=== PATIENT | male | born 1970 | race Caucasian/White ===

== ENCOUNTER 2017-04-24 15:59 | Emergency (ER) | payer BC ==
[2017-04-24 16:57] VITALS: BP 158/80
--- NOTE | 2017-04-24 17:25 | EDM.PDOC ---
ED HPI GENERAL MEDICAL PROBLEM - General Stated Complaint: LACERATION ABOUT R EYE Time Seen by Provider: 04/24/17 16:32 Source of Information: Reports: Patient History Limitations: Reports: No Limitations - History of Present Illness INITIAL COMMENTS - FREE TEXT/NARRATIVE: History of present illness: [46-year-old male presents with laceration just to involving the top portion of his right eyebrow it's curvilinear laceration following the eyebrow. He sustained it while moving a bookshelf he hit it on the top edge of the bookshelf. There was no loss of consciousness no other injuries. It is 4 cm long.] Review of systems: As per history of present illness and below otherwise all systems reviewed and negative. Past medical history: As per history of present illness and as reviewed below otherwise noncontributory. Surgical history: As per history of present illness and as reviewed below otherwise noncontributory. Social history: No reported history of drug or alcohol abuse. Family history: As per history of present illness and as reviewed below otherwise noncontributory. Physical exam: HEENT: He has a curvilinear for similar laceration following the top edge of the right eyebrow that appears to be a clean cut. Lungs: Clear to auscultation, Heart: S1S2, regular, negative for clicks, rubs, or JVD. Extremities: Atraumatic, negative for cords or calf pain. Neurovascular unremarkable. Neuro: Awake, alert, oriented. Exam nonfocal. Diagnostics: [] Therapeutics: [There was prepped and draped the usual fashion 1% lidocaine without epinephrine was used for local infiltration The wound was closed with 5-0 Ethilon in a simple running fashion Dressing applied by the nurse. Patient tolerated the procedure well tetanus is up-to-date ] Impression: [4 cm laceration involving the right eyebrow] Plan: [Sutures out in 5-7 days. Follow-up sooner signs of infection.] Definitive disposition and diagnosis as appropriate pending reevaluation and review of above. - Related Data Allergies Allergy/AdvReac Type Severity Reaction Status Date / Time No Known Allergies Allergy Verified 04/24/17 17:24 Home Meds: Home Meds NK [No Known Home Meds] 04/24/17 [History] ED ROS GENERAL - Review of Systems Review Of Systems: ROS reveals no pertinent complaints other than HPI. ED EXAM, GENERAL - Physical Exam Exam: See Below Course - Vital Signs Last Recorded V/S: Last Vital Signs Temp 36.3 C 04/24/17 16:55 Pulse 76 04/24/17 16:55 Resp 18 04/24/17 16:55 BP 158/80 H 04/24/17 16:55 Pulse Ox 96 04/24/17 16:55 - Orders/Labs/Meds Meds: Medications Discontinued Medications Generic Name Dose Route Start Last Admin Trade Name Freq PRN Reason Stop Dose Admin Lidocaine HCl 5 ml 04/24/17 17:02 Xylocaine-Mpf 1% INJECT 04/24/17 17:03 ONETIME ONE Departure - Departure Time of Disposition: 17:24 Disposition: Home, Self-Care 01 Condition: Good Clinical Impression: Eyebrow laceration Qualifiers: Encounter type: initial encounter Laterality: right Qualified Code(s): S01.111A - Laceration without foreign body of right eyelid and periocular area, initial encounter - Discharge Information Additional Instructions: Your sutures can be removed in 5-7 days in the clinic. You can shower and wash as usual.
== END 2017-04-24 17:34 | disposition home or self-care (01) ==
LOC: JP.ED 15:59
DX: S01.111A Laceration without foreign body of right eyelid and periocular area, initial encounter (principal); W22.8XXA Striking against or struck by other objects, initial encounter
CPT/HCPCS: 12013; 99283-25

== ENCOUNTER 2017-05-31 05:54 | Emergency (ER) | payer BC ==
[2017-05-31] MEDS ORDERED: Ketorolac 60 MG/2 ML SDV IM ONE (05:59)
[2017-05-31] MEDS ORDERED: Ketorolac 60 MG/2 ML SDV ONE (06:01)
[2017-05-31 06:03] VITALS: BP 153/103
--- NOTE | 2017-05-31 06:03 | EDM.PDOC ---
ED HPI GENERAL MEDICAL PROBLEM - General Chief Complaint: Lower Extremity Injury/Pain Stated Complaint: LEFT KNEE PAIN Time Seen by Provider: 05/31/17 05:59 Source of Information: Reports: Patient, RN Notes Reviewed History Limitations: Reports: No Limitations - History of Present Illness INITIAL COMMENTS - FREE TEXT/NARRATIVE: 47-year-old gentleman presents emergency department today with complaint of left knee pain, he tripped going out his front steps this morning twisted and landed all his weight on the left knee, he is experiencing pain cannot ambulate Left Knee Pain Score (Numeric/FACES): 8 - Related Data Allergies Allergy/AdvReac Type Severity Reaction Status Date / Time No Known Allergies Allergy Verified 05/31/17 05:58 Home Meds: Home Meds Ginkgo Biloba 1 tab PO DAILY 05/31/17 [History] Multivitamin [Multivitamins] 1 tab PO DAILY 05/31/17 [History] Potassium 1 tab PO DAILY 05/31/17 [History] Past Medical History - Past Health History Medical/Surgical History: Denies Medical/Surgical History - Infectious Disease History Infectious Disease History: Reports: C-Difficile Social & Family History - Tobacco Use Smoking Status *Q: Never Smoker Used Tobacco, but Quit: No Second Hand Smoke Exposure: No - Caffeine Use Caffeine Use: Reports: Energy Drinks, Soda, Tea - Alcohol Use Days Per Week of Alcohol Use: 0 - Recreational Drug Use Recreational Drug Use: No Review of Systems - Review of Systems Review Of Systems: See Below Musculoskeletal: Reports: Joint Pain (Left knee) Skin: Reports: No Symptoms Neurological: Reports: No Symptoms ED EXAM, GENERAL - Physical Exam Exam: See Below Free Text/Narrative:: Examination of left knee I don't appreciate any erythema there is no edema he is tender to any movement difficult to exam Limited secondary. Pain, pedal pulse is +2 no edema noted lower extremity Exam Limited By: No Limitations General Appearance: Alert, Mild Distress Course - Vital Signs Last Recorded V/S: Last Vital Signs Temp 97.9 F 05/31/17 05:56 Pulse 73 05/31/17 05:56 Resp 20 05/31/17 05:56 BP 153/103 H 05/31/17 05:56 Pulse Ox 100 05/31/17 05:56 - Orders/Labs/Meds Orders: Active Orders 24 hr Category Date Time Status Knee 3V Lt [CR] Stat Exams 05/31/17 06:00 Taken DME for Discharge [COMM] Per Unit Routine Oth 05/31/17 06:47 Ordered DME for Discharge [COMM] Per Unit Routine Oth 05/31/17 06:52 Ordered Meds: Medications Discontinued Medications Generic Name Dose Route Start Last Admin Trade Name Suze PRN Reason Stop Dose Admin Ketorolac Tromethamine 60 mg 05/31/17 05:59 05/31/17 06:04 Toradol IM 05/31/17 06:00 60 mg ONETIME ONE Administration Ketorolac Tromethamine Confirm 05/31/17 06:01 Toradol Administered 05/31/17 06:02 Dose 60 mg .ROUTE .STK-MED ONE Departure - Departure Time of Disposition: 06:54 Disposition: Home, Self-Care 01 Condition: Good Clinical Impression: Patellar tendon strain Qualifiers: Encounter type: initial encounter Laterality: left Qualified Code(s): S86.812A - Strain of other muscle(s) and tendon(s) at lower leg level, left leg, initial encounter - Discharge Information Referrals: PCP,None [Primary Care Provider] - Forms: ED Department Discharge Additional Instructions: Please call orthopedics at [phone] to schedule up a follow-up appointment for reevaluation of your knee, use hydrocodone as needed for pain control - My Orders Last 24 Hours: My Active Orders 05/31/17 06:00 Knee 3V Lt [CR] Stat 05/31/17 06:47 DME for Discharge [COMM] Per Unit Routine 05/31/17 06:52 DME for Discharge [COMM] Per Unit Routine - Assessment/Plan Last 24 Hours: My Active Orders 05/31/17 06:00 Knee 3V Lt [CR] Stat 05/31/17 06:47 DME for Discharge [COMM] Per Unit Routine 05/31/17 06:52 DME for Discharge [COMM] Per Unit Routine Plan: Assessment Acuity = acute Site and laterality = left knee strain concern for patellar disruption Etiology = secondary to fall at home Manifestations = pain Location of injury = Home Lab values = knee film x-ray I did review films myself I cannot appreciate any acute process, the official read from radiology is pending Plan I did review films with him also consulted orthopedics recommend follow-up one week placed in a knee immobilizer with crutches hydrocodone written for pain control Patient was in agreement with the plan all questions were answered, they were instructed to return to the emergency department or call for worsening symptoms. This note was dictated using [employer] voice recognition software please call with any questions.
--- NOTE | 2017-05-31 10:09 | CR ---
Knee 3V Lt INDICATION: pain twist COMPARISON: MR 01/13/2007 FINDINGS: 3 views. No fracture seen. Lateral subluxation of the patella increased slightly since t he prior exam. No joint space narrowing. IMPRESSION: Nothing acute. Lateral subluxation patella increased slightly since 2006.
== END 2017-05-31 07:10 | disposition home or self-care (01) ==
LOC: JP.ED 05:54
DX: S86.812A Strain of other muscle(s) and tendon(s) at lower leg level, left leg, initial encounter (principal); W10.9XXA Fall (on) (from) unspecified stairs and steps, initial encounter
CPT/HCPCS: 73562; 96372; 99284; J1885

== ENCOUNTER 2021-02-17 07:49 | Emergency (ER) | payer OTHER ==
[2021-02-17 08:11] VITALS: BP 138/59; PULSE 83
[2021-02-17] MEDS ORDERED: Ketorolac 60 MG/2 ML SDV IM ONE (08:18)
--- NOTE | 2021-02-17 08:21 | EDM.PDOC ---
ED HPI GENERAL MEDICAL PROBLEM - General Chief Complaint: Abdominal Pain Stated Complaint: SHARP PAIN ON HIS LEFT SIDE Time Seen by Provider: 02/17/21 08:15 Source of Information: Reports: Patient, RN Notes Reviewed History Limitations: Reports: No Limitations - History of Present Illness INITIAL COMMENTS - FREE TEXT/NARRATIVE: 50-year-old gentleman presents emergency department day complaint of left flank pain, he states it sudden onset this morning a no history of stones, he describes the pain sharp stabbing and then it will relax no nausea normal bowel movement this morning no shortness of breath or chest pain - Related Data Allergies Allergy/AdvReac Type Severity Reaction Status Date / Time No Known Allergies Allergy Verified 02/17/21 08:06 Home Meds: Home Meds Ginkgo Biloba 1 tab PO DAILY 05/31/17 [History] Multivitamin [Multivitamins] 1 tab PO DAILY 05/31/17 [History] Potassium 1 tab PO DAILY 05/31/17 [History] Amoxicillin/Clavulanate K [Augmentin 875-125 MG] 1 tab PO BID #10 tablet 02/17/21 [Rx] Ascorbic Acid [Vitamin C] 1 tab PO DAILY 02/17/21 [History] Cholecalciferol (Vitamin D3) [Vitamin D] 1 tab PO DAILY 02/17/21 [History] Cider Vinegar [Apple Cider Vinegar] 1 tab PO DAILY 02/17/21 [History] Hydrocodone/Acetaminophen [Hydrocodon-Acetaminophen 5-325] 1 each PO TID PRN #10 tablet 02/17/21 [Rx] Indomethacin 50 mg PO ASDIRECTED PRN 02/17/21 [History] Magnesium 400 mg PO DAILY 02/17/21 [History] Vitamin B Complex [Super B-50 Complex] 1 tab PO DAILY 02/17/21 [History] Past Medical History HEENT History: Reports: Hard of Hearing, Impaired Vision Musculoskeletal History: Reports: Gout - Infectious Disease History Infectious Disease History: Reports: C-Difficile - Past Surgical History Head Surgeries/Procedures: Reports: None HEENT Surgical History: Reports: None Endocrine Surgical History: Reports: None Musculoskeletal Surgical History: Reports: Arthroscopic Procedure Dermatological Surgical History: Reports: None Social & Family History - Tobacco Use Tobacco Use Status *Q: Never Tobacco User Second Hand Smoke Exposure: No - Caffeine Use Caffeine Use: Reports: Energy Drinks - Recreational Drug Use Recreational Drug Use: No ED ROS GENERAL - Review of Systems Review Of Systems: See Below Constitutional: Reports: No Symptoms Respiratory: Reports: No Symptoms Cardiovascular: Reports: No Symptoms GI/Abdominal: Reports: Abdominal Pain, Flatus. Denies: Constipation, Diarrhea, Nausea, Vomiting : Reports: Flank Pain ED EXAM, RENAL/ - Physical Exam Exam: See Below Exam Limited By: No Limitations General Appearance: Alert, Mild Distress Respiratory/Chest: No Respiratory Distress, Lungs Clear, Normal Breath Sounds, No Accessory Muscle Use, Chest Non-Tender Cardiovascular: Regular Rate, Rhythm, No Murmur GI/Abdominal: Soft, Tender (Tender left lower quadrant into the pelvic region) Course - Vital Signs Last Recorded V/S: Last Vital Signs Temp 97.2 F 02/17/21 08:14 Pulse 83 02/17/21 08:14 Resp 20 02/17/21 08:14 BP 138/59 L 02/17/21 08:14 Pulse Ox 96 02/17/21 08:14 - Orders/Labs/Meds Labs: Laboratory Tests 02/17/21 Range/Units 08:55 Urine Color Yellow (YELLOW) Urine Appearance Clear (CLEAR) Urine pH 5.5 (5.0-8.0) Ur Specific [place] 1.025 (1.008-1.030) Urine Protein Negative (NEGATIVE) mg/dL Urine Glucose (UA) Negative (NEGATIVE) mg/dL Urine Ketones Negative (NEGATIVE) mg/dL Urine Occult Blood Negative (NEGATIVE) Urine Nitrite Negative (NEGATIVE) Urine Bilirubin Negative (NEGATIVE) Urine Urobilinogen 0.2 (0.2-1.0) EU/dL Ur Leukocyte Esterase Negative (NEGATIVE) Urine RBC Not seen (0-5) Urine WBC 0-5 (0-5) Ur Epithelial Cells Not seen Amorphous Sediment Not seen Urine Bacteria Not seen Urine Mucus Not seen Meds: Medications Discontinued Medications Generic Name Dose Route Start Last Admin Trade Name Freq PRN Reason Stop Dose Admin Ketorolac Tromethamine 60 mg 02/17/21 08:18 02/17/21 08:24 Ketorolac 60 Mg/2 Ml Sdv IM 02/17/21 08:19 60 mg ONETIME ONE Administration Departure - Departure Time of Disposition: 09:14 Disposition: Home, Self-Care 01 Condition: Fair Clinical Impression: Diverticulitis - Discharge Information Prescriptions: Amoxicillin/Clavulanate K [Augmentin 570-125 MG] 1 tab PO BID #10 tablet Hydrocodone/Acetaminophen [Hydrocodon-Acetaminophen 5-325] 1 each PO TID PRN #10 tablet PRN Reason: Pain Instructions: Diverticulitis Referrals: Vineet Leo MD [Primary Care Provider] - Forms: ED Department Discharge Additional Instructions: Take full course of antibiotics, use ibuprofen for baseline pain control use hydrocodone for breakthrough pain, please follow-up with your primary care in the next 7 to 10 days for reevaluation consider colonoscopy in the future Sepsis Event Note (ED) - Evaluation Sepsis Screening Result: No Definite Risk - Focused Exam Vital Signs: Vital Signs Temp Pulse Resp BP Pulse Ox 02/17/21 08:14 97.2 F 83 20 138/59 L 96 02/17/21 08:07 97.2 F 83 20 138/59 L 96 - Assessment/Plan Plan: Assessment Acuity = acute Site and laterality = diverticulitis sigmoid colon Etiology = unknown Manifestations = none Location of injury = Home Lab values = CT scan describes diverticulitis early Plan I did review CT scan results with her and provided him a copy as well placed on Augmentin 875 p.o. twice daily x10 days as well as prescription for hydrocodone 5/325 1 tab p.o. 3 times daily as needed total #10 provided for pain control and follow-up with his primary care in the next 7 to 10 days for reevaluation This note was dictated using [employer] voice recognition software please call with any questions on syntax or grammar.
--- NOTE | 2021-02-17 08:55 | CT ---
Abdomen Pelvis wo Cont CLINICAL HISTORY: Left flank pain COMPARISON: None. TECHNIQUE: Axial tomographic images are obtained from the dome of the diaphragm to the pubic symphysis without IV contrast enhancement. No oral contrast was used. The dosage reduction and iterative reconstruction techniques employed. FINDINGS: The lung bases are clear. The liver shows some diffuse fatty infiltration there is borderline enlarged at 17 cm in length. The gallbladder has a normal appearance. The spleen has normal size and shape. The pancreas shows no mass or inflammatory change. There is a 1.1 x 1.2 cm low-attenuation nodule left adrenal gland which is likely benign adenoma. There are 3 punctate calculi in the right kidney. There is no hydronephrosis. There are 2 nonobstructive renal calculi left kidney. There is no hydronephrosis. The ureters have a normal course and caliber. The bladder has a normal contour. The aorta shows no significant plaque or aneurysm. There are a few small nonspecific lymph nodes in the periaortic region. The abdominal pelvic fat planes and low pelvic side boyce are well demarcated. There is mild the diverticulosis. There is some stranding in the pericolic fat at the junction of the descending and sigmoid colon. Some early changes of diverticulitis are not excluded. IMPRESSION: Mild early changes of diverticulitis at the junction of the descending and proximal sigmoid colon Small nonobstructing renal calculi in both kidneys. No renal mass or hydronephrosis Benign-appearing left adrenal nodule. Fatty infiltration of the liver with borderline hepatomegaly
== END 2021-02-17 09:20 | disposition home or self-care (01) ==
LOC: JP.ED 07:49
DX: K57.32 Diverticulitis of large intestine without perforation or abscess without bleeding (principal)
CPT/HCPCS: 74176; 81001; 96372; 99284; J1885